=== PATIENT | male | born 1985 | race Caucasian/White ===

== ENCOUNTER 2018-04-14 10:07 | Emergency (ER) | payer SELFPAY ==
[~2018-04-14] VITALS: Ht 177.8 cm; Wt 96.0 kg
[2018-04-14] MEDS ORDERED: KETOROLAC 60MG/2ML VIAL IM ONE (11:15)
[2018-04-14] MEDS ORDERED: DEXAMETHASONE 10 MG/ML VIAL IM ONE (11:15)
[2018-04-14 11:19] VITALS: BP 130/76
[2018-04-16] MEDS ORDERED: NALOXONE HCL 1 MG/ML 2ML VIAL ONE (02:35)
== END 2018-04-14 11:40 | disposition home or self-care (01) ==
LOC: ER 10:07
DX: M54.42 Lumbago with sciatica, left side (principal); V49.3XXA Car occupant (driver) (passenger) injured in unspecified nontraffic accident, initial encounter; Y93.89 Activity, other specified; Y92.89 Other specified places as the place of occurrence of the external cause; Y99.8 Other external cause status
CPT/HCPCS: 96372; 99284; J1100; J1885; J2310